=== PATIENT | female | born 1985 | race Caucasian/White ===

== ENCOUNTER 2016-03-28 07:30 | Inpatient (IN) | payer SELFPAY ==
[2016-03-25 16:11] LABS: HEMATOCRIT 38.4 % (36.0-48.0); HEMOGLOBIN 13.4 g/dL (12-16); MCH 30.9 pg (26.0-34.0); MCHC 34.9 g/dL (31.0-37.0); MCV 88.7 fL (80.0-100.0); MEAN PLATELET VOLUME 10.6 fL (7.4-10.4); RBC 4.33 10x6/uL (4.00-5.40); RDW 12.3 % (11.5-14.5); WBC 7.5 10x3/uL (4.8-10.8)
[~2016-03-28] VITALS: Ht 167.6 cm; Wt 105.5 kg
[~2016-03-28 07:30] MED LIST: BUPROPION HCL100 M1 PO
[2016-03-28 08:27] VITALS: BP 118/79; BMI 37.5
[2016-03-28 09:02] LABS: HCG URINE NEGATIVE (NEGATIVE)
--- NOTE | 2016-03-28 13:25 | NUR ---
DR. DUMONT ASST DR. DOSHI AT 1300
--- NOTE | 2016-03-28 14:29 | OP ---
PATIENT NAME: MARCIA OLSON MEDICAL RECORD: [id number] :84 LOCATION:[facility] ADMISSION DATE:03/28/16 SURGEON: LAURIE DOSHI MD DATE OF OPERATION: 03/28/2016 SURGEON: Laurie Doshi MD PREOPERATIVE DIAGNOSES: 1. Obesity. 2. Anxiety 3. Obstructive sleep apnea. POSTOPERATIVE DIAGNOSES: 1. Obesity. 2. Anxiety 3. Obstructive sleep apnea. PROCEDURE PERFORMED: Laparoscopic vertical sleeve gastrectomy. SURGEON: Laurie Doshi MD ANESTHESIA: General. COMPLICATIONS: None. SPECIMENS: Partial gastrectomy. Case was clean contaminated. ESTIMATED BLOOD LOSS: 150 cc. OPERATIVE COURSE: After consent was obtained, the patient was taken to the operating room and placed in the supine position on the operating table. Next, general anesthesia was given via endotracheal intubation after a timeout was performed that confirmed the correct patient and procedure. Next, the abdomen was prepped and draped in typical sterile fashion. Local anesthetic was injected just above the umbilicus. A stab incision was made with an 11-blade scalpel. Using a 12-mm bladeless optical trocar, the abdomen was entered under direct laparoscopic vision. Adequate pneumoperitoneum was achieved. The abdominal cavity was inspected. No evidence of bowel injury. No evidence of bleeding. The patient was then placed in steep reverse Trendelenburg position. A subxiphoid incision was made and Julio Cesar liver retractor was placed. The left lobe of the liver was elevated to expose the GE junction. Next, all remaining trocars were placed after the administration of local anesthetic, an 11-mm trocar and 5-mm trocar into the right lateral quadrants, two 5-mm trocars in the left lateral quadrants. All were placed under direct laparoscopic vision. Next, the pylorus was identified. Starting approximately 6 cm from the pylorus, the greater curvature of the stomach was mobilized, taking the short gastrics which was accomplished with the Harmonic scalpel. Dissection continued along the entire length of the greater curvature until the left crura was identified again using the Harmonic scalpel. At this time, a 40-Khmer ViSiGi bougie was advanced. It was passed into the stomach. It was passed along the greater curvature of the stomach and passed through the pylorus. It was then placed to suction. Next, the vertical sleeve gastrectomy was performed using the Barnebys linear power cutting stapler, 60 mm, with gold loads, approximately OPERATIVE REPORT [id number] MARCIA OLSON ____ were used to create the sleeve gastrectomy. The specimen was placed in the left lateral quadrant. At this time, the staple line was reinforced with a 2-0 Stratafix suture imbricating the suture line starting at the GE junction. Once this was complete, a bowel clamp was placed across the first portion of the duodenum. The patient was placed into Trendelenburg position and the upper abdomen was full of water. A ____ leak test was performed, which showed no evidence of leak with the ViSiGi device. The ViSiGi device was then used to suction the stomach. Once all suctioned, it was removed. At this time, careful attention was paid to hemostasis. Again, the entire abdominal cavity was inspected. A Surgicel was placed in the left upper quadrant at the splenic hilum. Wood was applied into the left upper quadrant and along the staple line. Once this was complete, again the abdominal cavity was inspected. There was no evidence of bowel injury. No evidence of bleeding. The 5-mm camera was then placed in the left lateral port. The 12-mm and 11-mm trocar sites were closed with 0 Vicryl suture on a Conrado-Mathew suture passer under direct laparoscopic vision. The Julio Cesar liver retractor was removed. At this time, all remaining instruments were removed. The abdomen was desufflated. Trocar sites were closed with 4-0 Monocryl, Mastisol and Steri-Strips. At the end of the case, all needle and instrument counts were correct. No complications occurred. The patient was extubated and transferred to the PACU in stable condition. TRANSINT:[id number] Voice Confirmation ID: [id number] DOCUMENT ID: [id number] LAURIE DOSHI MD at 1429 CC: [id number] DICTATION DATE: 03/28/16 1351 PR INTERNSHIP: 03/28/16 1418 [facility] [address]
[2016-03-28 14:35] VITALS: BP 137/87
--- NOTE | 2016-03-28 14:39 | NUR ---
PT RECIEVED TO ROOM FROM RR VITAL SIGNS STABLE NO DISTRESS NOTED VOICES NEEDS ORIENTED TO ROOM AND STAFF WELL CALL LIGHT FAMILY IN ROOM AT BEDSIDE
--- NOTE | 2016-03-28 14:43 | NUR ---
DISCUSSED WITH PT. ADN TO USE ALTERNATE CONTROL IF ON CONTROL PILLS FOR NEXT 7 DAYS IF SUGGAMANEX IS USED
[2016-03-28 16:37] VITALS: BP 157/52
--- NOTE | 2016-03-28 17:25 | NUR ---
AMBULATED 500 FEET IN [place] INDEPENDENTLY WITH AT SIDE. TOLERATED WITHOUT C/O. WILL CONTINUE TO MONITOR.
--- NOTE | 2016-03-28 18:11 | NUR ---
PT AMBULATED 500 FT FOR 2ND TIME SINCE ADMIT TO FLOOR FROM TELERATING WELL AMBULATES UNASSISTED WITH SPOUSE AT SIDE NO ACUTE DISTRESS NTOED VOICES ALL NEEDS TO STAFF SURGICAL DRESSINGS INTACT TO LAPROSITES. NO BLEEDING OR DRAINAGE NOTED WILL MONITOR FOR PT TO PASS GAS
[2016-03-28 18:28] VITALS: BP 140/86; Ht 167.6 cm; Wt 105.5 kg
[2016-03-28 19:00] VITALS: BP 147/73
--- NOTE | 2016-03-28 20:45 | NUR ---
PT RETURNED FROM AMBULATING IN [place], ASSESSMENT COMPLETED, NO ACUTE DISTRESS NOTED, DENIES NEEDS, SR'S UP X2, CL IN REACH, WILL MONITOR
--- NOTE | 2016-03-28 22:10 | NUR ---
PT AMBULATING IN [place] WITH NO DISTRESS NOTED
[2016-03-29] VITALS: BP 129/79
--- NOTE | 2016-03-29 01:00 | NUR ---
RESTING WITH EYES CLOSED, SNORING RESP, NO DISTRESS NOTED, SR'S UP X2, CL IN REACH
--- NOTE | 2016-03-29 03:58 | NUR ---
ASSISTED TO RESTROOM AND REPOSTIONING IN BED, IV FLUIDS HUNG PER MAR, PARVIZ WELL, DENIES NEEDS. CL IN REACH
[2016-03-29 04:00] VITALS: BP 150/83
[2016-03-29 04:53] LABS: BASOPHILS 0.2 % (0.0-2.0); EOSINOPHILS 0 % (0-7); HEMATOCRIT 35.7 % (36.0-48.0); HEMOGLOBIN 12.1 g/dL (12-16); IMMATURE GRANULOCYTES 0.2 % (0-5); LYMPHOCYTES 13.5 % (15-50); MCH 30.6 pg (26.0-34.0); MCHC 33.9 g/dL (31.0-37.0); MCV 90.2 fL (80.0-100.0); MEAN PLATELET VOLUME 10.3 fL (7.4-10.4); NEUTROPHILS 74.1 % (40-80); PLATELET COUNT 210 10x3/uL (130-400); RBC 3.96 10x6/uL (4.00-5.40); RDW 12.4 % (11.5-14.5); WBC 10.7 10x3/uL (4.8-10.8)
[2016-03-29 05:09] LABS: ALBUMIN 3.4 g/dL (3.4-5.0); ALKALINE PHOSPHATASE 60 U/L (46-116); ALT (SGPT) 67 U/L (10-68); BILIRUBIN - TOTAL 0.81 mg/dL (0.2-1.3); CALC OSMOLALITY 278 mosm/kg (275-300); CALCIUM 8.6 mg/dL (8.5-10.1); CARBON DIOXIDE 24.8 mmol/L (21.0-32.0); CHLORIDE - SERUM 106 mmol/L (98-107); CREATININE - SERUM 0.8 mg/dL (0.6-1.3); GLUCOSE 120 mg/dL (74-106); POTASSIUM - SERUM 3.8 mmol/L (3.5-5.1); PROTEIN - SERUM 6.3 g/dL (6.4-8.2); SODIUM 140 mmol/L (136-145); UREA NITROGEN 9 mg/dL (7-18); eGFR NON AFRICAN AMERICAN 88 mL/min (90-120)
[2016-03-29 08:28] VITALS: BP 147/95
[2016-03-29] MEDS ORDERED: HYDROCODON-ACE1 EAC7 PO (08:57)
[2016-03-29] MEDS ORDERED: ZOFRAN ODT4 MG/UDTAB PO (08:57)
[2016-03-29 11:49] VITALS: BP 139/81
--- NOTE | 2016-03-29 14:30 | NUR ---
PATIENT RECEIVED DC INSTRUCTIONS. VERBALIZED UNDERSTANDING. NO QUESTIONS AT THIS TIME. PRESCRIPTIONS GIVEN TO PATIENT. IV REMOVED WITH CATH TIP INTACT. CALL LIGHT WITHIN REACH.
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
--- NOTE | 2016-05-18 10:17 | OP ---
PATIENT NAME: MARCIA OLSON MEDICAL RECORD: [id number] :84 LOCATION:[facility] ADMISSION DATE:03/28/16 SURGEON: ЕЛЕНА DUMONT MD DATE OF OPERATION: 03/28/2016 Assistance Note I assisted Dr. Doshi with laparoscopic sleeve gastrectomy for morbid obesity. My involvement in the operation included manipulation of tissue. Some suctioning. I entered the operation after the trocars had been placed, after he had already performed the partial gastrectomy and as he was oversewing the staple line. I assisted with retracting the tissues. Holding the suture. I assisted him with oversewing the staple line. I then scrubbed out as he was closing the skin incisions. TRANSINT:[id number] Voice Confirmation ID: [id number] DOCUMENT ID: [id number] ЕЛЕНА DUMONT MD at 1017 CC: LAURIE DOSHI MD [id number] DICTATION DATE: 03/28/16 1338 LEAD SUPPLY WORKER: 03/28/16 1401 DIS IN 03/29/16 [facility] [address] [place] [address]
== END 2016-03-29 16:15 | disposition home or self-care (01) | DRG 621 ==
LOC: D.SDCHOLD 07:30 → D.MS 07:34
PROVIDERS: Anesthesiology; ADMIT Surgery
PROC: 0DB64Z3 Excision of Stomach, Percutaneous Endoscopic Approach, Vertical (ICD-10-PCS; principal; 2016-03-28 07:30)
DX: E66.01 Morbid (severe) obesity due to excess calories (principal); F41.9 Anxiety disorder, unspecified; G47.33 Obstructive sleep apnea (adult) (pediatric); Z68.37 Body mass index [BMI] 37.0-37.9, adult

== ENCOUNTER → 2016-10-11 16:00 | Outpatient (CLI) | payer OTHER ==
[2016-03-28 18:28] VITALS: BMI 37.5
[~2016-10-11 16:00] MED LIST changes: +HYDROCODON-ACE1 EAC7 PO; +ZOFRAN ODT4 MG/UDTAB PO
[2016-10-11 16:25] LABS: BASOPHILS 0.4 % (0-2); EOSINOPHILS 0.7 % (0-7); HEMATOCRIT 36.4 % (36.0-48.0); HEMOGLOBIN 12.7 g/dL (12-16); IMMATURE GRANULOCYTES 0.1 % (0-5); LYMPHOCYTES 37.8 % (15-50); MCH 32.3 pg (26.0-34.0); MCHC 34.9 g/dL (31.0-37.0); MCV 92.6 fL (80.0-100.0); MEAN PLATELET VOLUME 10.3 fL (7.4-10.4); MONOCYTES 7.3 % (2-11); NEUTROPHILS 53.7 % (40-80); PLATELET COUNT 218 10x3/uL (130-400); RBC 3.93 10x6/uL (4.00-5.40); RDW 12.3 % (11.5-14.5); WBC 7.1 10x3/uL (4.8-10.8)
[2016-10-11 16:53] LABS: ALBUMIN 3.9 g/dL (3.4-5.0); ALKALINE PHOSPHATASE 92 U/L (46-116); ALT (SGPT) 23 U/L (10-68); BILIRUBIN - TOTAL 0.69 mg/dL (0.2-1.3); CALC OSMOLALITY 278 mosm/kg (275-300); CALCIUM 8.7 mg/dL (8.5-10.1); CARBON DIOXIDE 24.8 mmol/L (21.0-32.0); CHLORIDE - SERUM 103 mmol/L (98-107); CHOL - HDL RATIO 2.9 ratio (2.3-4.1); CHOLESTEROL, TOTAL 165 mg/dL (0-200); CREATININE - SERUM 0.7 mg/dL (0.6-1.3); GLUCOSE 83 mg/dL (74-106); HDL CHOLESTEROL 57 mg/dL (32-96); LDL CHOLESTEROL 90 mg/dL (0-100); LDL-HDL RATIO 1.6 ratio (1.5-3.5); POTASSIUM - SERUM 3.7 mmol/L (3.5-5.1); PROTEIN - SERUM 6.8 g/dL (6.4-8.2); SODIUM 139 mmol/L (136-145); TRIGLYCERIDE 90 mg/dL (30-200); UREA NITROGEN 17 mg/dL (7-18); eGFR NON AFRICAN AMERICAN > 90 mL/min (90-120)
== END | disposition home or self-care (01) ==
LOC: D.LAB 16:00
PROVIDERS: Surgery
DX: Z00.00 Encounter for general adult medical examination without abnormal findings (principal)